=== PATIENT | female | born 1965 | race Caucasian/White ===

== ENCOUNTER → 2016-08-06 | Outpatient (CLI) | payer MEDICAID ==
[2016-08-06 12:23] LABS: LYMPH # 2.2 K/mm3 (0.7-4.5); LYMPH % 26.5 % (10-50.0)
[2016-08-06 13:20] LABS: BUN 14 mg/dL (7-18)
[2016-08-06 13:24] LABS: GFR (ESTIMATED) 106 ML/MIN (59-)
== END ==
LOC: LAB 12:10
PROVIDERS: Nurse Practitioner Family
DX: E78.2 Mixed hyperlipidemia (principal); E66.01 Morbid (severe) obesity due to excess calories; R73.09 Other abnormal glucose; G47.33 Obstructive sleep apnea (adult) (pediatric); Z00.00 Encounter for general adult medical examination without abnormal findings

== ENCOUNTER → 2016-08-25 | Outpatient (CLI) | payer MEDICAID ==
--- NOTE | 2016-08-29 08:12 | RADIOLOGY REPORT PS360 ---
DIG MAMM-SCREEN [facility]Z W/CAD CAD Screening COMPARISON: Digital mammograms 08/24/2015 and 09/11/2013 INDICATION: There is a history of breast cancer patient maternal aunt and paternal. TECHNIQUE: Standard CC and MLO images were obtained. R2 CAD reviewed. FINDINGS: The breasts are composed primarily of fat with minimal scattered fibroglandular densities throughout both breasts. The rest are relatively large requiring 2 MLO and 2 cc views of each breast in order to include the entire breast. On one of the MLO views of the left breast there is a questionable density With irregular borders which I have marked on the film. This likely is a summation shadow since it was not definitely seen on the other views of the left breast. There are couple benign-appearing calcination is in each breast. There are no suspicious microcalcifications. IMPRESSION: Fatty type breast parenchyma with questionable new asymmetric density left breast likely a summation shadow but recommend the patient return for spot compression view of the area marked on the MLO view and suggest rolled CC views of the left breast for additional evaluation as well BI-RADS CATEGORY: 0_Incomplete: Need additional imaging RECOMMENDED FOLLOWUP: ADD ADDITIONAL IMAGING (A letter has been sent to the patient regarding results of the study.)
== END ==
LOC: RAD 15:47
DX: Z12.31 Encounter for screening mammogram for malignant neoplasm of breast (principal)
CPT/HCPCS: G0202

== ENCOUNTER → 2016-12-26 | Outpatient (CLI) | payer MEDICAID ==
[2016-12-26 14:33] LABS: HEMOGLOBIN 14.8 g/dL (12.2-16.2); LYMPH # 2.3 K/mm3 (0.7-4.5); LYMPH % 26.1 % (10-50.0)
[2016-12-27 08:43] LABS: Vitamin D, 25-Hydroxy 24.6 ng/mL (30.0-100.0)
--- NOTE | 2016-12-28 08:16 | RADIOLOGY REPORT PS360 ---
CT CHEST W/O CONTRAST HISTORY: INTERSTITIAL LUNG DISEASE Patient Age: 51 years: Female Ordering Physician: KRISTIAN REHMAN MD TECHNIQUE: Helical CT scanning performed the chest with no IV contrast.. Sagittal coronal reconstructions on CT workstation. Note This was to be a high-resolution chest study but apparently the protocol was not available to the technologist that has been deleted from the CT may And measures the technologist performed a standard CT chest without contrast. If require additional detail and a repeat resolution CT chest for this study will be performed at no additional charge the patient COMPARISON :CT chest 06/07/2016 with contrast FINDINGS': Mediastinum. No mediastinal or hilar mass. Generous anterior fat pad and mediastinal fat Stable enlarged right paratracheal node with dense granulomatous calcification at its medial aspect... This resides just medial to the azygos arch. Overall this enlarged node or or confluence of nodes measures up to 2.7 cm height( On coronal image 58), x 15 mm transverse x 21 mm AP. When using the same points of measurements it has remained stable since 06/07/2016. . .. Rather flat node is seen right paratracheal region just below the azygos arch although it measures 16 mm diameter it measures only 6 mm height. Axial image 33 coronal image 59. Small precarinal nodes are just to the left are stable less than 1 cm size. 3 or 4 stable small nodes in the AP window. Largest 17 mm length 18 mm AP... 8 mm width. Mm node at the AP window . Heart appears normal in size no pericardial effusion. No unremarkable coronary artery calcification. LUNG BULLOCK. Patchy Groundglass opacity most evident throughout anterior aspect of the upper lobes. With this pattern less evident but also seen at the periphery of the lower lobes right greater than left. Overall this pattern in the distribution of these groundglass appear unchanged since 06/07/2016. . This is nonspecific and could be seen withinterstitial pneumonitis either acute or chronic. No discrete interseptal thickening. There may be some minor bronchiectatic changes developing at the anterior aspect of the upper lobes to the fairly . . No lobar consolidation. .. No suspicious pulmonary nodules. There is evidence of oldgranulomatous disease. No acute bony anomalies. Upper abdomen. Bilateral adrenal enlargement again noted.. . Left adrenal is most enlarged measuring 1.7 x 2.7 cm and unchanged in size when using the same points for measurement. It is low density, less than 10 HU thus supporting benign impression adenoma. Right adrenal again enlarged a similar degree measuring up to 4.1 cm maximum length x 15 mm transverse. 3.2 cm height. It appears stable and measures low-density -13H U IMPRESSION: 1. No significant change since 06/07/2016. 2. Again stable low-density groundglass opacities regions seen throughout the anterior aspect upper lobes and less evident at lower lobes. . Nonspecific appearance, but can be but can reflect chronic interstitial pneumonitis. Lack of change since June 2016 supports chronic character. 3. No effusions or lobar consolidation or suspicious pulmonary nodules. 4. Stable benign appearing low-density Bilateral adrenal masses.. The low-density of both of these adrenal masses on today's noncontrast exam supports benign modified to adenoma bilateral.... ... Added note.: This was performed as a standard CT chest rather than high resolution CT chest because of problems with the CT protocol software menu. Please contact us a few desire this study be repeated, using high-resolution technique (A.
[2016-12-29 03:36] LABS: F002-IgE Milk <0.10 kU/L (Class 0)
[2017-01-03 03:37] LABS: D001-IgE D pteronyssinus <0.10 kU/L (Class 0); D002-IgE D farinae <0.10 kU/L (Class 0); E001-IgE Cat Dander <0.10 kU/L (Class 0); E005-IgE Dog Dander <0.10 kU/L (Class 0); E072-IgE Mouse Urine <0.10 kU/L (Class 0); G002-IgE Bermuda Grass <0.10 kU/L (Class 0); G006-IgE Timothy Grass <0.10 kU/L (Class 0); I006-IgE Cockroach, German <0.10 kU/L (Class 0); Immunoglobulin E, Total 45 IU/mL (0-100); M001-IgE Penicillium chrysogen <0.10 kU/L (Class 0); M002-IgE Cladosporium herbarum <0.10 kU/L (Class 0); M003-IgE Aspergillus fumigatus <0.10 kU/L (Class 0); M006-IgE Alternaria alternata <0.10 kU/L (Class 0); T001-IgE Maple/Box Elder <0.10 kU/L (Class 0); T003-IgE Common Silver Birch <0.10 kU/L (Class 0); T006-IgE Cedar, Mountain <0.10 kU/L (Class 0); T007-IgE Oak, White <0.10 kU/L (Class 0); T008-IgE Elm, American <0.10 kU/L (Class 0); T010-IgE Walnut <0.10 kU/L (Class 0); T011-IgE Maple Leaf Sycamore <0.10 kU/L (Class 0); T014-IgE Cottonwood <0.10 kU/L (Class 0); T015-IgE Ash, White <0.10 kU/L (Class 0); T022-IgE Pecan, Hickory <0.10 kU/L (Class 0); T070-IgE White Mulberry <0.10 kU/L (Class 0); W001-IgE Ragweed, Short <0.10 kU/L (Class 0); W011-IgE Thistle, Russian <0.10 kU/L (Class 0); W014-IgE Pigweed, Common <0.10 kU/L (Class 0); W018-IgE Sheep Sorrel <0.10 kU/L (Class 0)
== END ==
LOC: RAD 13:25
PROVIDERS: Internal Medicine; Nurse Practitioner
DX: J84.9 Interstitial pulmonary disease, unspecified (principal); J45.52 Severe persistent asthma with status asthmaticus; J30.9 Allergic rhinitis, unspecified; E55.9 Vitamin D deficiency, unspecified; T78.1XXA Other adverse food reactions, not elsewhere classified, initial encounter

== ENCOUNTER → 2017-03-10 | Outpatient (CLI) | payer MEDICAID ==
--- NOTE | 2017-03-10 13:53 | RADIOLOGY REPORT PS360 ---
DIG MAMM-DX UNI-LT W/CAD COMPARISON: 09/09/2016 INDICATION: Follow-up abnormal mammogram ORDERING PHYSICIAN: Adithya John MD PATIENT AGE: 51 years TECHNIQUE: Left mammogram FINDINGS: Fatty replaced fibroglandular tissue. No discrete mass or malignant appearing microcalcification evident. Previously noted asymmetric density in the inferior left breast is not demonstrated on today's exam. Benign-appearing calcification is noted in the retroareolar region. IMPRESSION: Benign findings. No evidence of malignancy. BI-RADS CATEGORY: 2_Benign RECOMMENDED FOLLOWUP: Bilateral screening mammogram August 2017 (A letter has been sent to the patient regarding results of the study.)
[2017-03-10 15:35] LABS: BUN 12 mg/dL (7-18)
[2017-03-10 15:48] LABS: GFR (ESTIMATED) 88 ML/MIN (59-)
[2017-03-11 07:37] LABS: Vitamin D, 25-Hydroxy 27.9 ng/mL (30.0-100.0)
== END ==
LOC: LAB 12:33 → RAD 12:33
PROVIDERS: Nurse Practitioner Family
DX: R92.8 Other abnormal and inconclusive findings on diagnostic imaging of breast (principal); R73.09 Other abnormal glucose; E78.2 Mixed hyperlipidemia; E55.9 Vitamin D deficiency, unspecified; E53.8 Deficiency of other specified B group vitamins
CPT/HCPCS: G0206-LT